=== PATIENT | male | born 1995 | race Caucasian/White ===

== ENCOUNTER 2016-10-23 17:44 | Emergency (ER) | payer OTHER ==
[2016-10-23] MEDS ORDERED: MOTRIN LIQUID PO ONE (18:30)
[2016-10-23] MEDS ORDERED: MOTRIN LIQUID ONE (18:43)
[2016-10-23 19:00] LABS: URINE SOURCE CLEAN CATCH
[2016-10-23] MEDS ORDERED: MOTRIN PO ONE (19:09)
--- NOTE | 2016-10-23 19:13 | PROVIDER DOCUMENTATION ---
HPI-General Adult - General Chief Complaint: Fever Stated Complaint: COLD SX/PEEING ORANGE Time Seen by Provider: 10/23/16 18:59 Source: patient Allergies/Adverse Reactions: Patient Allergies Allergy/AdvReac Type Severity Reaction Status Date / Time No Known Allergies Allergy Verified 10/23/16 18:34 - History of Present Illness -Gen Adult Nature of Presenting Problems: 21 year old M presents to the ED with a cc of urinating dark orange, headache, fever, neck pain, and sore throat. Pt states that he has had mid ABD pain also. Pt states that urinating dark orange, fever, neck pain, ABD pain and sore throat began yesterday. Pt states that he has had a headache x1 week. PT states that he saw PCP today for the same and was called back with abnormal labs. PT states that he was told he had bilirubin in his urine. Location of Pain/Injury: reports: head, neck, abdomen Pain Radiation: reports: no radiation Quality of Pain: reports: aching Severity: reports: mild Onset/Duration: reports: 24 hours ago Timing: reports: still present Context/Activities at Onset: reports: none Modifying Factors: improves with: nothing Associated Symptoms: reports: back/neck pain, EENT symptoms, fever/chills, genitourinary problems, headaches Similar Symptoms Previously?: No Recently seen or treated by another doctor?: Yes Review of Systems - Adult - REVIEW OF SYSTEMS - ADULT Constitutional: reports: fever. denies: chills Eyes: reports: no symptoms reported Ears, Nose, Mouth & Throat: reports: throat pain. denies: ear pain Cardiovascular: denies: chest pain, palpitations Respiratory: denies: cough, shortness of breath Gastrointestinal: reports: abdominal pain. denies: diarrhea, nausea, vomiting Genitourinary: reports: other (urinating dark orange). denies: dysuria, hematuria Musculoskeletal: reports: neck pain. denies: back pain, muscle aches, muscle weakness Integumentary: denies: skin sores/ulcer, skin thickening Neurological: reports: headache/migraines. denies: dizziness/vertigo Psychiatric: reports: no symptoms reported Endocrine: reports: no symptoms reported Hematologic/Lymphatic: reports: no symptoms reported Allergic/Immunologic: reports: no symptoms reported All Other Systems: Reviewed and Negative Past History - Adult - PAST MEDICAL HISTORY-ADULT Review of Records: reports: Nursing Assessment Review, Medications Reviewed Major Childhood Illnesses: reports: denies history - PRIOR SURGERIES/PROCEDURES Surgical/Procedure History: reports: hernia repair - IMMUNIZATION STATUS Childhood Immunizations: See Nurse Assessment Flu Vaccine: See Nurse Assessment - SOCIAL HISTORY Smoking: cigarettes, chew, greater than 1 pack/day Provider spent 3-5 mins advising pt. on dangers of tobacco.: Discussed manners to quit use, and f/u contacts for add'l counseling. Substance Use: none/never Alcohol Use Frequency: never Physical Exam-General - PHYSICAL EXAM-ADULT Initial Vital Signs Reviewed: Yes - CONSTITUTIONAL General Appearance: appears well, alert, no apparent distress - HEAD, EARS, NOSE, MOUTH & THROAT HENMT: normocephalic/atraumatic, moist mucous membranes, normal ENT inspection, pharyngeal erythema, tonsillar exudate (and tonsillar swelling) - NECK Neck: full range of motion, normal inspection, lymphadenopathy (tender anterior cervical) - RESPIRATORY Respiratory: chest non-tender, lungs clear, normal breath sounds - CARDIOVASCULAR Cardiovascular: normal peripheral pulses, regular rate, rhythm, no edema - GASTROINTESTINAL (ABDOMEN) Abdominal Exam: non tender, soft - SKIN Integumentary: normal color, normal turgor, warm/dry - PSYCHIATRIC Psych/Mental Status: normal mood/affect, normal thought content, normal thought process, oriented x 3 Progress - PLAN OF CARE/RESULTS Progress/Plan/Lab Results: plan of care: labs, medications Orders Category Date Time Status CBC WITH ELECTRONIC DIFF [HEME] Stat Lab 10/23/16 18:50 Completed CMP [COMPREHENSIVE METABOLIC PANEL] [CHEM] Stat Lab 10/23/16 18:[address] Stat Lab 10/23/16 18:[address] Stat Lab 10/23/16 18:35 Completed MONO SCREEN [SERO] Stat Lab 10/23/16 18:00 Completed UA [URINALYSIS PL W/POSS RFLX CULT] [URINALYSIS] Stat Lab 10/23/16 18:35 Completed URINE CULTURE [RM] Routine Lab 10/23/16 19:22 Ordered Ibuprofen [Motrin Liquid] Med 10/23/16 18:43 Discontinued 400 mg .ROUTE .STK-MED ONE Ibuprofen [Motrin Liquid] Med 10/23/16 18:30 Discontinued 400 mg PO NOW ONE Ibuprofen [Motrin] Med 10/23/16 19:09 Discontinued 400 mg PO NOW ONE Laboratory Tests 10/23/16 10/23/16 10/23/16 18:00 18:35 18:35 WBC RBC Hgb Hct MCV MCH MCHC RDW Std Deviation Plt Count MPV Neut % (Auto) Lymph % (Auto) Ada % (Auto) Eos % (Auto) Baso % (Auto) Neut # (Auto) Lymph # (Auto) Ada # (Auto) Eos # (Auto) Baso # (Auto) Segmented Neutrophils Lymphocytes Monocytes Atypical Lymphocytes Sodium Potassium Chloride Carbon Dioxide Anion Gap BUN Creatinine Estimated GFR/1.73 m2 BUN/Creatinine Ratio Glucose Calculated Osmolality Calcium Total Bilirubin AST ALT Alkaline Phosphatase Total Protein Albumin Globulin Albumin/Globulin Ratio Urine Source CLEAN CATCH Urine Color JOSELITO Urine Clarity SL. CLOUDY A Urine pH 6.5 Ur Specific [place] 1.015 Urine Protein 1+(30 mg/dL) A Urine Ketones TRACE Urine Blood 1+ A Urine Nitrite POSITIVE A Urine Bilirubin 3+ A Urine Urobilinogen 3+(8 mg/dL) Urine Microscopic RBC <10 Urine WBC 1+ A Urine Microscopic WBC <10 Ur Epithelial Cells <10 Urine Crystals URIC ACID PRESENT Urine Bacteria 1+ Urine Casts GRANULAR PRESENT Urine Yeast NONE SEEN Urine Glucose NEGATIVE Monoscreen POSITIVE H Influenza A (Rapid) Influenza B (Rapid) Group A Strep Rapid NEGATIVE 10/23/16 10/23/16 10/23/16 18:35 18:50 18:50 WBC 20.07 H RBC 4.98 Hgb 14.8 Hct 43.6 MCV 87.6 MCH 29.7 MCHC 33.9 RDW Std Deviation 12.2 Plt Count 137 MPV 10.9 H Neut % (Auto) Not Reportable Lymph % (Auto) 64.6 H Ada % (Auto) 17.1 H Eos % (Auto) 0.4 Baso % (Auto) Not Reportable Neut # (Auto) Not Reportable Lymph # (Auto) 12.97 H Ada # (Auto) 3.43 H Eos # (Auto) 0.08 Baso # (Auto) Not Reportable Segmented Neutrophils 17 L Lymphocytes 56 H Monocytes 17 H Atypical Lymphocytes 10.0 Sodium 134 L Potassium 3.2 L Chloride 99 Carbon Dioxide 25 Anion Gap 10 BUN 5 L Creatinine 0.8 Estimated GFR/1.73 m2 > 60 BUN/Creatinine Ratio 6 Glucose 126 H Calculated Osmolality 267 Calcium 8.7 L Total Bilirubin 3.50 H AST 220 H ALT 270 H Alkaline Phosphatase 324 H Total Protein 7.1 Albumin 3.7 Globulin 3.0 Albumin/Globulin Ratio 1.0 Urine Source Urine Color Urine Clarity Urine pH Ur Specific [place] Urine Protein Urine Ketones Urine Blood Urine Nitrite Urine Bilirubin Urine Urobilinogen Urine Microscopic RBC Urine WBC Urine Microscopic WBC Ur Epithelial Cells Urine Crystals Urine Bacteria Urine Casts Urine Yeast Urine Glucose Monoscreen Influenza A (Rapid) NEGATIVE Influenza B (Rapid) NEGATIVE Group A Strep Rapid Vital Signs - 24 hr 10/23/16 18:29 Temperature 102.2 F H Pulse Rate 82 Respiratory 18 Rate Blood Pressure 131/69 O2 Sat by Pulse 100 Oximetry Pt given results and will be d/c home w/ rx to follow up with PCP. Pt verbally understood instructions. PT remained clinically stable throughout the course of the ED stay and will return if symptoms worsen. Departure - Departure Time of Disposition Order: 20:00 DIAGNOSIS: Infectious mononucleosis Qualifiers: Infectious mononucleosis etiology: unspecified organism Infectious mononucleosis complication: without complication Qualified Code(s): B27.90 - Infectious mononucleosis, unspecified without complication Disposition: HOME 01 Certified Medical Emergency: Emergent Condition: Good Additional Instructions: Follow up with primary care doctor. Return to ED for any new or worsening symptoms. Establish care with a primary physician by calling the physician referral line below ED Follow Up Instructions: You have been treated by a care provider in the Emergency Department. These instructions are being provided to you so you can have an understanding of how to care for yourself upon discharge. Upon discharge from the Emergency Department, you are responsible for making arrangements for follow-up care by a physician of your choice. Take all prescribed medications as directed. Return to the Emergency Department immediately for any new or worsening symptoms. You may call the Physician Referral phone number at [phone] to obtain a list of Physicians who are taking new patients. Prescriptions: Ibuprofen [Motrin] 800 mg PO Q8H PRN PRN #30 tablet PRN Reason: Pain Hydrocodone/Acetaminophen [[place] 5-325 Tablet] 1 each PO Q4-6H PRN PRN #20 tablet PRN Reason: Pain Referrals: None,PCP [Primary Care Provider] - Attestation - Scribe Verification/Attestation Scribe:: Madeline Devries Acting as Scribe for:: Tavon Olguin Scribe documention review:: This chart was documented by a scribe and accurately reflects the service the provider performed and the decisions made by the provider. Physician Attestation - Physician Attestation I, the provider, attest to the following statement:: Tavon Olguin Physician documentation Attestation:: This documentation recorded by the scribe accurately reflects the service I personally performed and the decisions made by me.
[2016-10-23 19:20] LABS: BILIRUBIN URINE 3+ (NEGATIVE); BLOOD URINE 1+ (NEGATIVE); CLARITY SL. CLOUDY (CLEAR); COLOR AMBER; GLUCOSE URINE NEGATIVE (NEGATIVE); LEUKOCYTES URINE 1+ (NEGATIVE); NITRITE URINE POSITIVE (NEGATIVE); PH URINE 6.5; PROTEIN URINE 1+(30 mg/dL) mg/dL (NEGATIVE); SP GRAVITY URINE 1.015
[2016-10-23 19:21] LABS: URINE CAST GRANULAR PRESENT /LPF; URINE CULTURE PL NEEDED? YES; URINE EPITHELIAL CELLS <10 /HPF (<10); URINE RBC <10 /HPF (<10); URINE WBC <10 /HPF (<10)
[2016-10-23 19:22] LABS: URINE CRYSTAL URIC ACID PRESENT /HPF; UROBILINOGEN URINE 3+(8 mg/dL)
[2016-10-23 19:29] LABS: EOS# 0.08 X1000 (0.0-0.7); EOS% 0.4 % (0.0-10.0); HEMATOCRIT 43.6 % (42.0-52.0); HEMOGLOBIN 14.8 g/dL (14.0-18.0); LYMPH# 12.97 X1000 (1.2-3.4); LYMPH% 64.6 % (20.5-51.1); MANUAL DIFF NEEDED? YES; MCH 29.7 PG (27-31); MCHC 33.9 g/dL (33-37); MCV 87.6 FL (81-99); MONO# 3.43 X1000 (0.11-0.59); MONO% 17.1 % (1.7-9.3); MPV 10.9 FL (7.4-10.4); PLT 137 X1000 (130-400); RBC 4.98 XMIL (4.7-6.1)
[2016-10-23 19:48] LABS: AGAP 10; ALBUMIN 3.7 g/dL (3.5-5.0); ALKALINE PHOSPHATASE 324 U/L (32-122); BUN 5 mg/dL (8-22); CALCIUM 8.7 mg/dL (8.8-10.2); CHLORIDE 99 mmol/L (98-107); COSMO 267; GOT 220 U/L (10-34); GPT 270 U/L (10-44); POTASSIUM 3.2 mmol/L (3.5-5.1); SODIUM 134 mmol/L (136-145); TCO2 25 mmol/L (25-35); TOTAL PROTEIN 7.1 g/dL (6.3-8.3)
[2016-10-23 19:49] LABS: LYMPHS 56 % (21-51); MONO 17 % (1-9)
[2016-10-23 20:13] VITALS: BP 117/77
== END 2016-10-23 20:13 | disposition home or self-care (01) ==
LOC: P.ED 17:44
DX: B27.90 Infectious mononucleosis, unspecified without complication (principal); R82.90 Unspecified abnormal findings in urine; R51 Headache; M54.2 Cervicalgia; J02.9 Acute pharyngitis, unspecified; R10.9 Unspecified abdominal pain; R50.9 Fever, unspecified; F17.210 Nicotine dependence, cigarettes, uncomplicated; Z71.6 Tobacco abuse counseling; J35.1 Hypertrophy of tonsils; R59.0 Localized enlarged lymph nodes
CPT/HCPCS: 80053; 81001; 85025; 86308; 87081; 87088; 87430; 87804